=== PATIENT | male | born 1970 | race Hispanic/Latino ===

== ENCOUNTER 2023-12-01 06:30 | Day surgery (SDC) | payer OTHER ==
[2023-11-29 14:23] VITALS: BP 126/84; PULSE 94; RESP 18
[2023-11-29 14:43] LABS: BASOPHILS # (AUTO) 0.06 K/uL (0.00-0.20); BASOPHILS % (AUTO) 0.9 % (0.0-5.0); EOSINOPHILS # (AUTO) 0.22 K/uL (0.00-0.70); EOSINOPHILS % (AUTO) 3.3 % (0.0-8.0); HEMATOCRIT 46.2 % (42-54); IMMATURE GRANULOCYTE ABSOLUTE 0.03 K/uL (0-1); LYMPHOCYTES # (AUTO) 2.1 K/uL (1.0-4.8); LYMPHOCYTES % (AUTO) 31.8 % (21.0-51.0); MEAN CORPUSCULAR HEMOGLOBIN 31.5 pg (27.0-33.0); MEAN CORPUSCULAR HGB CONC 33.8 g/dL (32.0-36.0); MEAN CORPUSCULAR VOLUME 93.1 fL (79-99); MONOCYTES # (AUTO) 0.8 K/uL (0.1-1.0); MONOCYTES % (AUTO) 12.3 % (3.0-13.0); NEUTROPHILS # (AUTO) 3.5 K/uL (1.8-7.7); NEUTROPHILS % (AUTO) 51.3 % (40.0-77.0); PLATELET COUNT (AUTO) 251 K/uL (130-400); RED BLOOD CELL COUNT(AUTO) 4.96 MIL/uL (4.50-6.20); RED CELL DISTRIBUTION WIDTH 12.8 % (11.0-15.5); WHITE BLOOD COUNT (AUTO) 6.7 K/uL (4.8-10.8)
[2023-11-29 14:52] LABS: POTASSIUM 4.1 mmol/L (3.5-5.1)
[2023-11-29 14:55] LABS: INR 0.98 (0.85-1.15); PROTHROMBIN TIME 10.6 SEC (9.6-11.6)
[2023-11-29 14:57] LABS: PARTIAL THROMBOPLASTIN TIME 24.8 SEC (26.3-35.5)
[~2023-12-01] VITALS: Ht 177.8 cm; Wt 100.3 kg
[2023-12-01] VITALS (18 sets, daily range): BP systolic 114–148; BP diastolic 70–92; PULSE 71–95; RESP 10–18
[~2023-12-01 06:30] MED LIST: CELE100 PO; CYCL-309 PO; DICL100G60 TP; GABA-529 PO; GLIM4TAB36 PO; LISI40TA9 PO; MAGN400T53 PO; METF-446 PO; MV-M1TAB20 PO; PANT40TA54 PO; ROSU5TAB43 PO; SEMA1PEN3 SQ
[2023-12-01] MEDS ORDERED: ceFAZolin SODIUM 2 GM VIAL ONE (07:00)
[2023-12-01] MEDS ORDERED: BUPIvacaine/PF 0.25% 30ML VIAL IJ ONE (07:43)
[2023-12-01] MEDS: 0.9%NACL 1000ML 1,000 ML IV ONE (09:29)
[2023-12-01] MEDS ORDERED: ONDANSETRON 4MG INJ ONE (09:59)
[2023-12-01] MEDS ORDERED: MIDAZOLAM HCL 1 MG/ML 2ML VIAL ONE (09:59)
[2023-12-01] MEDS ORDERED: FENTANYL CITRATE PF 50 MCG/1 ML 2ML VIAL ONE ×2 (09:59→10:49)
[2023-12-01] MEDS ORDERED: KETAMINE 50MG/ML SYRINGE 50 MG/ML DISP.SYRIN ONE (10:07)
[2023-12-01] MEDS ORDERED: PROPOFOL 10 MG/ML 20ML VIAL IV ONE (10:09)
[2023-12-01] MEDS ORDERED: LIDOCAINE PF 100MG/5ML (2%) SYRINGE 5ML ONE (10:09)
[2023-12-01] MEDS ORDERED: ROCURONIUM BROMIDE 10MG/1ML 5ML VL ONE (10:10)
[2023-12-01] MEDS ORDERED: acetaMINOPHEN 1,000 MG/100 ML VIAL IV ONE (10:24)
[2023-12-01] MEDS: ceFAZolin SODIUM 2 GM VIAL IVPB ONE (10:25)
[2023-12-01] MEDS ORDERED: DEXAMETHASONE SOD PHOSPHATE 10MG/ML 1ML VIAL ONE (10:43)
[2023-12-01] MEDS ORDERED: PHENYLEPHRINE HCL 10 MG/ML 1ML VIAL IV ONE (10:45)
[2023-12-01] MEDS: BUPIvacaine/PF 0.25% 30ML VIAL IJ ONE ×2 (11:08→11:37)
[2023-12-01] MEDS ORDERED: GLYCOPYRROLATE 0.2 MG/ML 5 ML VIAL ONE (11:40)
[2023-12-01] MEDS ORDERED: NEOSTIGMINE METHYLSULFATE 1MG/ML IV ONE (11:40)
[2023-12-01] MEDS ORDERED: KETOROLAC 30MG VIAL (30MG/ML) ONE ×2 (11:42→11:43)
[2023-12-01] MEDS ORDERED: MEPERIDINE-PF 25 MG/ML SYG ONE (11:45)
[2023-12-01] MEDS ORDERED: HYDR-4060 PO (11:58)
[2023-12-01] MEDS: MEPERIDINE-PF 25 MG/ML SYG ONE (12:15)
[2023-12-01] MEDS: ONDANSETRON 4MG INJ ONE (12:31)
[2023-12-01] MEDS: SCOPOLAMINE HYDROBROMIDE 1 EACH ADH..PATCH TD ONE (12:34)
[2023-12-01] MEDS: METOCLOPRAMIDE 10 MG/2 ML VIAL ONE (12:35)
[2023-12-01] MEDS ORDERED: ROPivacaine 0.5% 5MG/ML 30ML ONE (12:41)
[2023-12-01] MEDS ORDERED: LIDOCAINE HCL/EPINEPHRINE 50 ML VIAL IJ ONE (12:41)
== END 2023-12-01 14:15 | disposition home or self-care (01) ==
LOC: DAH 06:30
PROVIDERS: ATTEND Student in an Organized Health Care Education/Training Program
DX: M23.352 Other meniscus derangements, posterior horn of lateral meniscus, left knee (principal); M17.12 Unilateral primary osteoarthritis, left knee; M94.262 Chondromalacia, left knee; M65.862 Other synovitis and tenosynovitis, left lower leg; M67.52 Plica syndrome, left knee; I10 Essential (primary) hypertension; E11.9 Type 2 diabetes mellitus without complications; Z79.899 Other long term (current) drug therapy; Z79.01 Long term (current) use of anticoagulants; Z90.79 Acquired absence of other genital organ(s); Z82.49 Family history of ischemic heart disease and other diseases of the circulatory system
CPT/HCPCS: 80048; 85025; 85610; 85730; 36415; 29881; 82948 ×2; 93005; A4663; J7030 ×2; A4649 ×2; J3010 ×2; J1100; J0665 ×2; J3490 ×3; J2001; J2250; J2704; J2405 ×2; J1885 ×2; J2710; J2175; J2765; J2795; J2371; J0690 ×2; A6223; A5120; A4215; A4223; A4213; A4222; A4221; A6450